=== PATIENT | male | born 1950 | race Two or more races ===

== ENCOUNTER 2023-09-14 09:45 | Inpatient (IN) | payer OTHER ==
[~2023-09-14] VITALS: Ht 177.8 cm; Wt 68.9 kg
[2023-09-14] MEDS ORDERED: TENORMIN50 M1 PO (12:28)
[2023-09-14] MEDS ORDERED: TAMS0.4C PO (12:28)
[2023-09-14] MEDS ORDERED: ZOCOR40 MG PO (12:32)
[2023-09-18 15:44] LABS: HEMATOCRIT 36.2 % (39.0-48.0); HEMOGLOBIN 11.2 g/dL (13-16.00); MEAN CELL VOLUME 80.9 fL (80.0-100.00); MEAN CORPUSCULAR HEMOGLOBIN 25.1 pg (27.00-32.0); PLATELET COUNT 256 K/uL (150-450); RED BLOOD COUNT 4.47 M/uL (4.00-6.00); RED CELL DISTRIBUTION WIDTH 18.1 % (11.5-14.5)
[2023-09-18 16:04] LABS: ALBUMIN 2.8 gm/dL (3.4-5.0); CALCIUM 8.9 mg/dL (8.5-10.1); CREATININE SERUM 1.02 mg/dL (0.70-1.30); GFR 71.79; MAGNESIUM 2.3 mg/dL (1.8-2.4); PHOSPHOROUS 3.4 mg/dL (2.5-4.9); POTASSIUM 3.36 mEq/L (3.5-5.1)
[2023-09-19 06:44] LABS: HEMATOCRIT 33.5 % (39.0-48.0); HEMOGLOBIN 10.9 g/dL (13-16.00); MEAN CELL VOLUME 80.1 fL (80.0-100.00); MEAN CORPUSCULAR HEMOGLOBIN 26.1 pg (27.00-32.0); MEAN CORPUSCULAR HGB CONC 32.6 g/dl (32.0-36.0); PLATELET COUNT 230 K/uL (150-450); RED BLOOD COUNT 4.18 M/uL (4.00-6.00); RED CELL DISTRIBUTION WIDTH 18.1 % (11.5-14.5)
[2023-09-19 07:11] LABS: ALBUMIN 2.6 gm/dL (3.4-5.0); CALCIUM 8.4 mg/dL (8.5-10.1); CREATININE SERUM 0.78 mg/dL (0.70-1.30); GFR 97.84; MAGNESIUM 2.1 mg/dL (1.8-2.4); PHOSPHOROUS 2.4 mg/dL (2.5-4.9); POTASSIUM 3.61 mEq/L (3.5-5.1)
[2023-09-20 06:42] LABS: HEMATOCRIT 35.3 % (39.0-48.0); HEMOGLOBIN 11.6 g/dL (13-16.00); MEAN CELL VOLUME 80.9 fL (80.0-100.00); MEAN CORPUSCULAR HEMOGLOBIN 26.7 pg (27.00-32.0); PLATELET COUNT 245 K/uL (150-450); RED BLOOD COUNT 4.36 M/uL (4.00-6.00); RED CELL DISTRIBUTION WIDTH 18.7 % (11.5-14.5)
[2023-09-20 07:24] LABS: CREATININE SERUM 1.08 mg/dL (0.70-1.30); GFR 67.21; MAGNESIUM 2.3 mg/dL (1.8-2.4); PHOSPHOROUS 2.3 mg/dL (2.5-4.9); POTASSIUM 3.66 mEq/L (3.5-5.1)
[2023-09-21] MEDS ORDERED: ACETAMINOPHEN500 M2 PO (15:48)
[2023-09-21] MEDS ORDERED: NEURONTIN300 MG PO (15:48)
== END 2023-09-21 17:12 | disposition home or self-care (01) | DRG 330 ==
LOC: O/R 09-18 09:36 → SURG 09-18 09:45 → SURH 09-18 16:05 → SURG 09-18 19:30 → SURH 09-21 17:12
PROVIDERS: Internal Medicine Geriatric Medicine; ADMIT Surgery; ATTEND Surgery
PROC: 0DBP4ZZ Excision of Rectum, Percutaneous Endoscopic Approach (ICD-10-PCS; 2023-09-18)
PROC: 07BB4ZZ Excision of Mesenteric Lymphatic, Percutaneous Endoscopic Approach (ICD-10-PCS; 2023-09-18)
PROC: 0DJD8ZZ Inspection of Lower Intestinal Tract, Via Natural or Artificial Opening Endoscopic (ICD-10-PCS; 2023-09-18)
PROC: 0DTN4ZZ Resection of Sigmoid Colon, Percutaneous Endoscopic Approach (ICD-10-PCS; principal; 2023-09-18 19:30)
DX: C18.7 Malignant neoplasm of sigmoid colon (principal); C78.7 Secondary malignant neoplasm of liver and intrahepatic bile duct; K55.1 Chronic vascular disorders of intestine; R59.0 Localized enlarged lymph nodes; I11.9 Hypertensive heart disease without heart failure

== ENCOUNTER 2023-10-04 07:13 | Inpatient (IN) | payer OTHER ==
[~2023-10-04] VITALS: Ht 177.8 cm; Wt 63.5 kg
[~2023-10-04 07:13] MED LIST: ACETAMINOPHEN500 M2 PO; NEURONTIN300 MG PO; TAMS0.4C PO; TENORMIN50 M1 PO; ZOCOR40 MG PO
[2023-10-04 08:35] LABS: HEMATOCRIT 34.9 % (39.0-48.0); HEMOGLOBIN 11.4 g/dL (13-16.00); MEAN CELL VOLUME 80.9 fL (80.0-100.00); MEAN CORPUSCULAR HEMOGLOBIN 26.4 pg (27.00-32.0); MEAN CORPUSCULAR HGB CONC 32.6 g/dl (32.0-36.0); PLATELET COUNT 431 K/uL (150-450); RED BLOOD COUNT 4.31 M/uL (4.00-6.00); RED CELL DISTRIBUTION WIDTH 20.7 % (11.5-14.5)
[2023-10-04 08:55] LABS: ALBUMIN 2.6 gm/dL (3.4-5.0); BILIRUBIN TOTAL 1.74 mg/dL (0.3-1.2); CALCIUM 9.3 mg/dL (8.5-10.1); CREATININE SERUM 2.67 mg/dL (0.70-1.30); GFR 23.58; GLOBULINA 4.8 G/DL (2.4-3.5); POTASSIUM 4.13 mEq/L (3.5-5.1); TOTAL PROTEIN 7.4 gm/dL (6.4-8.2)
[2023-10-04 16:27] LABS: PH,URINE 5.5 (5.0-8.0); URINE APPEARANCE Clear; URINE BILIRRUBIN Negative (NEGATIVE); URINE BLOOD Moderate; URINE COLOR Dark Yellow; URINE GLUCOSE Negative (NEGATIVE); URINE LEUKOCYTE Trace; URINE NITRATE Negative; URINE PROTEIN Trace (NEGATIVE)
[2023-10-04 16:28] LABS: URINE BACTERIA 747.1 uL (0.0-1933); URINE EPITHELIAL CELLS 26.7 uL (0.0-38.8); URINE RBC 155.2 uL (0.0-20.8); URINE WBC 14.2 uL (0.0-23.2)
[2023-10-04 16:50] LABS: HEMATOCRIT 34.6 % (39.0-48.0); HEMOGLOBIN 11.2 g/dL (13-16.00); MEAN CORPUSCULAR HEMOGLOBIN 26.6 pg (27.00-32.0); MEAN CORPUSCULAR HGB CONC 32.4 g/dl (32.0-36.0); PLATELET COUNT 444 K/uL (150-450); RED BLOOD COUNT 4.22 M/uL (4.00-6.00); RED CELL DISTRIBUTION WIDTH 20.8 % (11.5-14.5)
[2023-10-04 18:17] LABS: AMYLASE 32 U/L (25-115); LIPASE 26 U/L (13-75)
[2023-10-05 06:49] LABS: HEMATOCRIT 35.1 % (39.0-48.0); HEMOGLOBIN 11.5 g/dL (13-16.00); MEAN CELL VOLUME 82.9 fL (80.0-100.00); MEAN CORPUSCULAR HEMOGLOBIN 27.1 pg (27.00-32.0); MEAN CORPUSCULAR HGB CONC 32.7 g/dl (32.0-36.0); PLATELET COUNT 372 K/uL (150-450); RED BLOOD COUNT 4.23 M/uL (4.00-6.00)
[2023-10-05 07:16] LABS: ALBUMIN 2.5 gm/dL (3.4-5.0); BILIRUBIN TOTAL 1.59 mg/dL (0.3-1.2); CALCIUM 8.7 mg/dL (8.5-10.1); CREATININE SERUM 3.54 mg/dL (0.70-1.30); GFR 17.03; GLOBULINA 4.2 G/DL (2.4-3.5); MAGNESIUM 2.7 mg/dL (1.8-2.4); PHOSPHOROUS 5.3 mg/dL (2.5-4.9); POTASSIUM 4.74 mEq/L (3.5-5.1); TOTAL PROTEIN 6.7 gm/dL (6.4-8.2); TSH 3.03 uIU/mL (0.358-3.74)
[2023-10-05 07:24] LABS: ERYTHROCYTE SEDIMENTATION RATE 73 mm/hr
[2023-10-05 07:26] LABS: C-REACTIVE PROTEIN 7.8 MG/DL (0.00-0.29)
[2023-10-06 08:04] LABS: HEMATOCRIT 33.6 % (39.0-48.0); HEMOGLOBIN 11.3 g/dL (13-16.00); MEAN CELL VOLUME 81.6 fL (80.0-100.00); MEAN CORPUSCULAR HEMOGLOBIN 27.3 pg (27.00-32.0); MEAN CORPUSCULAR HGB CONC 33.4 g/dl (32.0-36.0); PLATELET COUNT 307 K/uL (150-450); RED BLOOD COUNT 4.12 M/uL (4.00-6.00); RED CELL DISTRIBUTION WIDTH 21.2 % (11.5-14.5)
[2023-10-06 08:34] LABS: CALCIUM 8.4 mg/dL (8.5-10.1); CREATININE SERUM 1.51 mg/dL (0.70-1.30); GFR 45.52; MAGNESIUM 2.5 mg/dL (1.8-2.4); PHOSPHOROUS 2.6 mg/dL (2.5-4.9); POTASSIUM 3.89 mEq/L (3.5-5.1)
[2023-10-08 07:29] LABS: HEMATOCRIT 32.6 % (39.0-48.0); MEAN CELL VOLUME 82.8 fL (80.0-100.00); MEAN CORPUSCULAR HGB CONC 32.8 g/dl (32.0-36.0); PLATELET COUNT 246 K/uL (150-450); RED BLOOD COUNT 3.94 M/uL (4.00-6.00)
[2023-10-08 07:30] LABS: HEMOGLOBIN 10.7 g/dL (13-16.00); MEAN CORPUSCULAR HEMOGLOBIN 27.1 pg (27.00-32.0)
[2023-10-08 07:31] LABS: BILIRUBIN TOTAL 2.75 mg/dL (0.3-1.2); CALCIUM 8.2 mg/dL (8.5-10.1); CREATININE SERUM 0.62 mg/dL (0.70-1.30); GFR 127.16; GLOBULINA 3.9 G/DL (2.4-3.5); POTASSIUM 3.05 mEq/L (3.5-5.1); TOTAL PROTEIN 5.9 gm/dL (6.4-8.2)
[2023-10-10] MEDS ORDERED: FAMOTIDINE20 MG PO (12:56)
[2023-10-10] MEDS ORDERED: TENORMIN50 M1 PO (12:56)
[2023-10-10] MEDS ORDERED: TAMS0.4C PO ×2 (12:56→13:01)
[2023-10-10] MEDS ORDERED: COZAAR50 MG PO (12:56)
[2023-10-10] MEDS ORDERED: HYDRODIURIL12.5 MG PO ×2 (12:56→13:01)
[2023-10-10] MEDS ORDERED: INTESTINEX680 M1 PO (12:57)
[2023-10-10] MEDS ORDERED: ATENOLOL50 MG PO (13:01)
[2023-10-10] MEDS ORDERED: LOSARTAN POTASS50 MG PO (13:01)
[2023-10-10] MEDS ORDERED: ABANEU-SL TABL1 EACH SL (13:01)
[2023-10-10] MEDS ORDERED: INTEGRA F CAPS1 EACH PO (13:01)
== END 2023-10-10 16:20 | DRG 683 ==
LOC: ER 07:13 → MEDI 18:25
PROVIDERS: General Practice; Internal Medicine; ADMIT Internal Medicine Geriatric Medicine; ATTEND Internal Medicine Geriatric Medicine
PROC: BW28ZZZ Computerized Tomography (CT Scan) of Head (ICD-10-PCS; principal; 2023-10-04)
PROC: BW21ZZZ Computerized Tomography (CT Scan) of Abdomen and Pelvis (ICD-10-PCS; 2023-10-04)
DX: N17.8 Other acute kidney failure (principal); C18.7 Malignant neoplasm of sigmoid colon; C78.7 Secondary malignant neoplasm of liver and intrahepatic bile duct; E86.0 Dehydration; N40.1 Benign prostatic hyperplasia with lower urinary tract symptoms; R33.8 Other retention of urine; I11.9 Hypertensive heart disease without heart failure; D72.828 Other elevated white blood cell count; E78.49 Other hyperlipidemia; R42 Dizziness and giddiness; G89.11 Acute pain due to trauma